=== PATIENT | female | born 1970 | race Caucasian/White ===

== ENCOUNTER 2017-12-17 10:29 | Emergency (ER) | payer OTHER ==
[2017-12-17] MEDS: ACETAMINOPHEN 325 MG TAB PO (11:02)
[2017-12-17] MEDS: IBUPROFEN 600 MG TAB PO (11:02)
== END 2017-12-17 11:15 | disposition home or self-care (01) ==
LOC: FTE 10:29
DX: S33.5XXA Sprain of ligaments of lumbar spine, initial encounter (principal); W19.XXXA Unspecified fall, initial encounter; Y92.89 Other specified places as the place of occurrence of the external cause
CPT/HCPCS: 99282